=== PATIENT | male | born 1960 | race Caucasian/White ===

== ENCOUNTER → 2020-03-14 | Outpatient (CLI) | payer OTHER ==
[2020-03-15 06:04] LABS: RUBEOLA (MEASLES) IGG 47.1 AU/mL (Immune >16.4)
== END | disposition home or self-care (01) ==
LOC: LABMN 12:50
PROVIDERS: ATTEND Internal Medicine
DX: B26.9 Mumps without complication (principal)
CPT/HCPCS: 86706; 86735; 86762; 86765; 86787